=== PATIENT | female | born 1960 | race Caucasian/White ===

== ENCOUNTER 2016-07-16 14:40 | Emergency (ER) | payer BC ==
[~2016-07-16] VITALS: Ht 165.1 cm; Wt 67.4 kg
[2016-07-16 18:50] VITALS: BP 151/80
== END 2016-07-16 18:51 | disposition home or self-care (01) ==
LOC: EME 14:40
DX: S70.12XA Contusion of left thigh, initial encounter (principal); W17.89XA Other fall from one level to another, initial encounter; Z87.891 Personal history of nicotine dependence
CPT/HCPCS: 99281; 99284